=== PATIENT | male | born 1980 | race Caucasian/White ===

== ENCOUNTER 2023-02-08 20:56 | Emergency (ER) | payer BC, SELFPAY ==
[2023-02-08] MEDS ORDERED: Ketorolac Tromethamine 30 MG/ML VIAL ONE (21:53)
[2023-02-08 22:00] LABS: Bilirubin Neg (Negative); Blood, Urine 50 (Negative); Clarity Clear (Clear); Glucose, Urine (Dipstick) Normal (Negative); Ketone, Urine Negative (Negative); Leukocyte 25 (Negative); Nitrite Negative (Negative); Protein, Urine (Dipstick) 15 mg/dl (Neg-Trace); Urobilinogen Normal mg/dL (Less than 2)
[2023-02-08 22:21] LABS: #Basophils 0.1 10x3/uL (0.0-0.2); #Eosinphils 0.4 10x3/uL (0.0-0.5); #Monocytes 0.9 10x3/uL (0.0-1.1); #Neutrophils 4.2 10x3/uL (1.5-8.4); %Basophils 1.4 % (0.0-2.0); %Eosinophils 4.7 % (0.0-6.0); %Lymphocytes 30.3 % (18.0-47.0); %Monocytes 11.3 % (0.0-10.0); %Neutrophils 52.1 % (40.0-75.0); Hematocrit 45.1 % (38.8-50.0); Hemoglobin 15.7 g/dL (13.5-17.5); Mean Corpuscular HGB CONC 34.8 g/dL (32.0-36.0); Mean Corpuscular Hemoglobin 29.2 pg (27.0-33.0); Mean Corpuscular Volume 83.8 fl (81.2-95.1); Mean Platelet Volume 8.3 fl (7.4-10.4); Platelet Count 355 10x3/uL (150-450); Red Blood Cell (RBC) Count 5.38 10x6/uL (4.32-5.72)
[2023-02-08 22:32] LABS: CAUTI Indications for Culture Pelvic or flank pain
[2023-02-08 22:32] LABS: ALT (SGPT) 50 U/L (8-55); AST (SGOT) 21 U/L (5-34); Albumin 4.6 g/dL (3.5-5.0); Alkaline Phosphatase 100 U/L (40-110); Anion Gap 14 mmol/L (10-20); BUN (Urea Nitrogen) 12 mg/dL (8.9-20.6); Bilirubin, Total 0.3 mg/dL (0.2-1.2); Calc. Creatinine Clearance 0 mL/min (70-130); Calcium 9.8 mg/dL (7.8-10.44); Carbon Dioxide 29 mmol/L (22-29); Chloride 101 mmol/L (98-107); Estimated GFR 83; Globulin 2.9 g/dL (2.4-3.5); Glucose 94 mg/dL (70-105); Lipase 20 U/L (8-78); Potassium 3.2 mmol/L (3.5-5.1); Protein, Total 7.5 g/dL (6.0-8.3); Sodium 141 mmol/L (136-145)
[2023-02-08 22:33] LABS: Bacteria/HPF None Seen HPF (None Seen); Calcium Oxalate Crystals 3+ HPF (None Seen); Squamous Epithelial None Seen HPF (0-3)
[2023-02-08 22:34] LABS: Urine Culture Reflex No No
== END 2023-02-08 23:04 | disposition home or self-care (01) ==
LOC: CSHERS 20:56
DX: R19.4 Change in bowel habit (principal); R10.84 Generalized abdominal pain; F17.210 Nicotine dependence, cigarettes, uncomplicated
CPT/HCPCS: 74176; 80053; 81001; 83605; 83690; 85025; 96374; J1885

== ENCOUNTER 2024-11-20 12:46 | Emergency (ER) | payer SELFPAY ==
[~2024-11-20 12:46] MED LIST: Iopamidol 300 61% 100 ML VIAL FS ONE
[2024-11-20 13:10] LABS: Glucose, Urine (Dipstick) Normal (Negative); Leukocyte 25 (Negative); Protein, Urine (Dipstick) 30 mg/dl (Neg-Trace); Specific Gravity, Urine 1.020 (1.005-1.030)
[2024-11-20 13:25] LABS: CAUTI Indications for Culture Pelvic or flank pain; RBC/HPF 0-3 HPF (0-3); WBC/HPF 0-3 HPF (0-3)
[2024-11-20 13:26] LABS: Bacteria/HPF Rare-Few HPF (None Seen)
[2024-11-20 13:27] LABS: Urine Culture Reflex No No
[2024-11-20 13:39] LABS: #Basophils 0.10 10x3/uL (0.0-0.2); #Eosinophils 0.32 10x3/uL (0.0-0.5); #Monocytes 0.59 10x3/uL (0.0-1.1); #Neutrophils 2.43 10x3/uL (1.5-8.4); %Basophils 1.7 % (0.0-2.0); %Eosinophils 5.4 % (0.0-6.0); %Lymphocytes 42.2 % (18.0-47.0); %Monocytes 9.9 % (0.0-10.0); %Neutrophils 40.6 % (40.0-75.0); Hematocrit 45.3 % (38.8-50.0); Hemoglobin 15.5 g/dL (13.5-17.5); Mean Corpuscular Hemoglobin 28.9 pg (27.0-33.0); Mean Corpuscular Volume 84.5 fL (81.2-95.1); Platelet Count 261 10x3/uL (150-450); Red Blood Cell (RBC) Count 5.36 10x6/uL (4.32-5.72); White Blood Cell (WBC) Count 5.97 10x3/uL (3.5-10.5)
[2024-11-20 13:57] LABS: ALT (SGPT) 174 U/L (Less than 45); AST (SGOT) 83 U/L (11-34); Albumin 4.5 g/dL (3.1-4.5); Alkaline Phosphatase 103 U/L (40-110); Anion Gap 14 mmol/L (10-20); BUN (Urea Nitrogen) 13 mg/dL (8.9-20.6); Bilirubin, Total 0.3 mg/dL (0.3-1.2); Calc. Creatinine Clearance 0 mL/min (70-130); Calcium 9.1 mg/dL (7.8-10.44); Carbon Dioxide 28 mmol/L (22-29); Chloride 102 mmol/L (98-107); Globulin 2.6 g/dL (2.4-3.5); Glucose 103 mg/dL (70-105); Potassium 3.9 mmol/L (3.5-5.1); Sodium 140 mmol/L (136-145)
== END 2024-11-20 16:26 | disposition home or self-care (01) ==
LOC: CSHERS 12:46
DX: K59.00 Constipation, unspecified (principal); F17.210 Nicotine dependence, cigarettes, uncomplicated
CPT/HCPCS: 74177; 80053; 81001; 83605; 85025